=== PATIENT | female | born 1950 | race Caucasian/White ===

== ENCOUNTER 2018-04-30 20:14 | Emergency (ER) | payer MEDICARE, SELFPAY ==
[2018-04-30 20:15] VITALS: BP 127/84; PULSE 83; RESP 12; TEMP 36.9; O2SAT 100; BMI 32.0
--- NOTE | 2018-04-30 21:12 | PC.NURSE ---
multiple attempts to access right pac and obtain peripheral iv access by myself, beatriz carmona, rn, and allyn marcelo rn with no success. dr reynoso notified. lab at bedside to attempt to obtain blood.
[2018-04-30 21:48] VITALS: BP 00/00; PULSE 85; RESP 16; TEMP 36.8; O2SAT 100
== END 2018-04-30 21:49 | disposition left against medical advice (07) ==
PROVIDERS: Emergency Provider Emergency Medicine; Family Provider Family Medicine Addiction Medicine
DX: Z53.21 Procedure and treatment not carried out due to patient leaving prior to being seen by health care provider (principal); R07.9 Chest pain, unspecified
CPT/HCPCS: G0463; 93005; 99211; 99281; 99282